=== PATIENT | female | born 1955 | race Caucasian/White ===

== ENCOUNTER 2023-01-27 11:24 | Emergency (ER) | payer MEDICARE, OTHER ==
[~2023-01-27] VITALS: Ht 170.2 cm; Wt 86.3 kg
[2023-01-27 12:47] LABS: INFLUENZA B NAA NEGATIVE (NEGATIVE); RESPIRATORY SYNCYTIAL VIR NAA NEGATIVE (NEGATIVE)
[2023-01-27 13:25] LABS: HEMATOCRIT 38.5 % (35.0-50.0); HEMOGLOBIN 12.8 g/dL (12.0-18.0); MCH 31.7 (27-36); MCHC 33.2 g/dl (30-36); MCV 95.6 fl (81-99); PLATELET COUNT 132 K/uL (140-440); RBC 4.03 M/ul (4.3-5.7); RDW 13.9 (10.5-15.0)
[2023-01-27] MEDS ORDERED: DEPAKOTE250 MG PO (13:35)
[2023-01-27] MEDS ORDERED: HALOPERIDOL5 MG PO (13:35)
[2023-01-27 13:37] LABS: ANION GAP 11.4 (7-21); BUN/CREATININE RATIO 13.53 (6.0-28.6); CALCIUM 8.9 mg/dL (8.5-10.1); CREATININE, SERUM 1.33 mg/dL (0.55-1.02); POTASSIUM 4.4 mmol/L (3.5-5.1)
[2023-01-27 13:41] LABS: BANDS, MANUAL DIFF 3; LYMPHOCYTES, MANUAL DIFF 13; MONOCYTES, MANUAL DIFF 8; NEUTROPHILS, MANUAL DIFF 76
[2023-01-27] MEDS ORDERED: PAXLOVID 150-11 EACH PO (14:03)
[2023-01-27 14:21] VITALS: BP 128/71
== END 2023-01-27 14:22 | disposition home or self-care (01) ==
LOC: ED 11:24
PROVIDERS: Emergency Medicine
DX: U07.1 COVID-19 (principal); Z88.2 Allergy status to sulfonamides
CPT/HCPCS: 36415; 71045; 80048; 85025; 87502; 87651; C9803; U0002

== ENCOUNTER 2024-06-14 13:25 | Emergency (ER) | payer MEDICARE, OTHER ==
[~2024-06-14] VITALS: Ht 170.2 cm; Wt 88.0 kg
[~2024-06-14 13:25] MED LIST: DEPAKOTE250 MG PO; HALOPERIDOL5 MG PO; PAXLOVID 150-11 EACH PO
[2024-06-14 14:51] LABS: BILIRUBIN, URINE NEGATIVE (negative); BLOOD/HGB, URINE NEGATIVE (Negative); KETONE, URINE TRACE (Negative); LEUK ESTERASE, URINE SMALL (negative); NITRITE, URINE NEGATIVE (negative)
[2024-06-14 14:57] LABS: BACTERIA, URINE 1+ /hpf (negative); CASTS, URINE NONE SEEN \\lpf; COLLECTION TYPE, URINE CLEAN CATCH; CRYSTALS, URINE NONE SEEN (0-1+); EPITHELIAL CELLS, URINE TRANSITIONAL 1+ /lpf (0-1+); RED BLOOD CELLS, URINE 0-1 /hpf (0-5); REFLEX CULTURE, URINE Yes (No); WHITE BLOOD CELLS, URINE >50 /HPF (0-5)
[2024-06-14] MEDS ORDERED: MACROBID 100 M100 MG PO (16:30)
[2024-06-14] MEDS ORDERED: PYRIDIUM200 MG PO (16:30)
[2024-06-14] MEDS ORDERED: NITROFURANTOIN MONOHYD MACROCR 100 MG CAP PO ONE (16:30)
[2024-06-14] MEDS ORDERED: PHENAZOPYRIDINE HCL 100 MG TAB PO ONE (16:30)
[2024-06-14 16:40] VITALS: BP 105/53
== END 2024-06-14 16:40 | disposition home or self-care (01) ==
LOC: ED 13:25
PROVIDERS: Emergency Medicine
DX: N39.0 Urinary tract infection, site not specified (principal); Z88.2 Allergy status to sulfonamides; Z79.899 Other long term (current) drug therapy
CPT/HCPCS: 81001; 87077; 87088; 87186; 99284

== ENCOUNTER 2024-10-28 05:40 | Day surgery (SDC) | payer MEDICARE, OTHER ==
[~2024-10-28] VITALS: Ht 170.2 cm; Wt 86.0 kg
[~2024-10-28 05:40] MED LIST changes: +FISH OIL 1,001000 MG PO; +HAIR, SKIN A66.7 MCG PO; +LACTATED RINGER'S 1,000 ML IV SCH; +MACROBID 100 M100 MG PO; +MULTI VITAMIN1 EACH PO; +PYRIDIUM200 MG PO; +VITAMIN C500 M5 PO; +VITAMIN D310 MC5 PO; +VITAMIN E100 UNI2 PO
[2024-10-28 05:57] VITALS: BP 125/68
[2024-10-28] MEDS ORDERED: VITAMIN A2400 MCG PO (06:01)
[2024-10-28] MEDS ORDERED: LIDOCAINE HCL 1% 5 ML SDV INJ ONE (07:00)
[2024-10-28] MEDS ORDERED: IBLOOD GLUCOSE TEST STRIP 1 EA TEST VI PRN ×2 (07:00→08:15)
--- NOTE | 2024-10-28 07:23 | NUR ---
VISITED DURING SPIRITUAL CARE ROUNDS. PT IN OVERALL GOOD SPIRITS, NO IMMEDIATE NEEDS. LENS EDGE GRINDER MACHINE PROVIDED SUPPORTIVE PRESENCE, HOSPITALITY, PRAYER, FACILITATED INTERACTION WITH THERAPY DOG. PT EXPRESSED GRATITUDE, HOPE, NICOLASA SOURCE OF STRENGTH.
[2024-10-28] MEDS ORDERED: ACETAMINOPHEN 1,000 MG/100 ML VIAL ONE (07:31)
[2024-10-28] MEDS ORDERED: KETAMINE in NS 50 MG/5 ML SYR ONE (07:37)
[2024-10-28] MEDS ORDERED: NALOXONE HCL 0.4 MG SYR IV PRN (08:15)
[2024-10-28] MEDS ORDERED: fentaNYL citrate 50 MCG/ML SDV IV PRN (08:15)
--- NOTE | 2024-10-28 08:16 | NUR ---
10/28/24 0816 Katrina Gravse 0812: PT ARRIVES TO PACU. SHE IS AWAKE AND ASKING QUESTIONS. SHE IS MAKING REPETITIVE STATEMENTS ABOUT BEING SORE AND ASKING "WHAT DID YOU DO DOWN THERE?"
[2024-10-28 08:43] VITALS: BP 124/65
--- NOTE | 2024-10-29 14:25 | PATH ---
[facility] [address] [facility] [place] [address] Signed SPECIMEN(S): A ENDOMETRIAL BIOPSY SPECIMEN SOURCE: A. ENDOMETRIAL BIOPSY CLINICAL HISTORY: Postmenopausal bleeding FINAL PATHOLOGIC DIAGNOSIS: Endometrial biopsy: - Scant superficial inactive glandular epithelium and metaplastic squamous epithelial cells with abundant mucoinflammatory debris. - See Comment. COMMENT: The sampled material consists predominantly of mucohemorrhagic material and slight inflammatory debris. The sample has insufficient epithelium for definitive characterization of the endometrium. Appropriate follow-up is requested as clinically indicated. JVR:smn MICROSCOPIC EXAMINATION: Histologic sections of all submitted blocks are examined by light microscopy. These findings, together with the gross examination, support the pathologic diagnosis. GROSS DESCRIPTION: The specimen, labeled and designated "RezaSorin rodriguez, endometrial biopsy" per requisition, is received in formalin and consists of a 2.4 x 1.8 x 0.6 cm area of paz tissue fragments admixed with clear mucus. The specimen is entirely submitted in cassette A1. AA (under the direct supervision of a pathologist) The Gross Description was prepared using a voice recognition system. The report was reviewed for accuracy; however, sound-alike word errors, addition and/or deletions may occur. If there is any question about this report, please contact Client Services. PERFORMING LABORATORY: Technical component was performed by [facility], [address] [place] [id number] (CLIA# [id number]). Professional interpretation was performed by [facility] [place] [facility], [address] PATIENT NAME: DANIEL MELENDREZ PATHOLOGY DATE OF : 53 REPORT #: [id number] PHYSICIAN: [facility] PCP: MARCELLE SY MD REPORT IS CONFIDENTIAL AND NOT TO BE RELEASED WITHOUT AUTHORIZATION [facility] [address] [place], [place] [address] Signed [address] [address] (CLIA#: [id number]). Diagnostician: Ghulam Torres MD Pathologist Electronically Signed 10/29/2024 Copies: ~ PATIENT NAME: DANIEL MELENDREZ PATHOLOGY DATE OF : 53 REPORT #: [id number] PHYSICIAN: [facility] PCP: MARCELLE SY MD REPORT IS CONFIDENTIAL AND NOT TO BE RELEASED WITHOUT AUTHORIZATION
--- NOTE | 2024-10-30 07:40 | OR ---
[facility] [address] [facility] [place] [address] Signed DATE OF OPERATION: 10/28/2024 SURGEON: Lucas Licona MD PREOPERATIVE DIAGNOSIS: Postmenopausal bleeding. POSTOPERATIVE DIAGNOSIS: Postmenopausal bleeding. PROCEDURE: Endometrial biopsy. ANESTHESIA: MAC plus local. DIETITIAN CHIEF: None. IV FLUIDS: 550 mL of crystalloid. ESTIMATED BLOOD LOSS: 5 mL. URINE OUTPUT: 150 mL. SPECIMENS: Endometrial sampling. DRAINS: None. COUNTS: Correct. COMPLICATIONS: None. Electronically Signed By: LUCAS LICONA MD 10/30/24 0740 PATIENT NAME: DANIEL MELENDREZ OPERATIVE REPORT DATE OF : 53 REPORT #: [id number] PHYSICIAN: LUCAS LICONA MD PCP: MARCELLE SY MD REPORT IS CONFIDENTIAL AND NOT TO BE RELEASED WITHOUT AUTHORIZATION [facility] [address] [place] [address] [place], [place] [address] Signed TECHNIQUE IN DETAIL: With informed consent, the patient was taken to the operating room where she was given IV sedation. She was prepped and draped and time-out was performed per protocol. A Celaya speculum was placed and the cervix was visualized. The patient was given a paracervical block in the form of 10 mL of 0.25% Marcaine with epinephrine. Single-tooth tenaculum was placed on the anterior lip of the cervix. The cervical canal was then carefully dilated using lacrimal dilators. Once adequate dilation had been effectuated, an endometrial Pipelle was passed through the cervical canal into the uterine fundus. The uterus sounded to 9 cm. Biopsy was performed. We used two Pipelles to do two biopsies to ensure maximal tissue recovery. Once biopsy specimens were obtained, procedure was deemed to be complete and tenaculum was removed. Tenaculum sites were hemostatic. The speculum was removed. The patient underwent I and O catheterization of her bladder for the above-mentioned amount. DISPOSITION: The patient was taken to the recovery room in stable condition. Lucas Licona MD BB/TRAYL /[id number] Copies: ~ Electronically Signed By: LUCAS LICONA MD 10/30/24 0740 PATIENT NAME: DANIEL MELENDREZ OPERATIVE REPORT DATE OF : 53 REPORT #: [id number] PHYSICIAN: LUCAS LICONA MD PCP: MARCELLE SY MD REPORT IS CONFIDENTIAL AND NOT TO BE RELEASED WITHOUT AUTHORIZATION
== END 2024-10-28 08:49 | disposition home or self-care (01) ==
LOC: DS 05:40
PROVIDERS: ATTEND Obstetrics & Gynecology
PROC: 0UDB7ZX Extraction of Endometrium, Via Natural or Artificial Opening, Diagnostic (ICD-10-PCS; principal; 2024-10-28 07:30)
DX: N95.0 Postmenopausal bleeding (principal); Z88.2 Allergy status to sulfonamides; Z91.09 Other allergy status, other than to drugs and biological substances
CPT/HCPCS: 00940; J0131; J2405; J2704; J3490; J7121

== ENCOUNTER 2025-02-09 00:16 | Emergency (ER) | payer MEDICARE, OTHER ==
[~2025-02-09] VITALS: Ht 170.2 cm; Wt 86.0 kg
[~2025-02-09 00:16] MED LIST changes: -LACTATED RINGER'S 1,000 ML IV SCH; +VITAMIN A2400 MCG PO
[2025-02-09] MEDS ORDERED: IBLOOD GLUCOSE TEST STRIP 1 EA TEST XX ONE (00:30)
[2025-02-09] MEDS ORDERED: LORazepam 2 MG/ML VIAL IV ONE ×2 (00:30→00:45)
[2025-02-09 00:45] LABS: BASOPHILS 0.3 % (0.1-1.2); EOSINOPHILS 0.9 % (0.7-5.8); LYMPHOCYTES 19.5 % (19.3-51.7); MCH 31.4 PG (25.6-32.2); MCHC 32.7 g/dL (32.2-35.5); MCV 96.1 fL (79.4-94.8); MONOCYTES 7.7 % (4.7-12.5); NEUTROPHILS 71.3 % (34.0-71.1); RBC 4.08 M/uL (3.93-5.22)
[2025-02-09 01:03] LABS: BLOOD/HGB, URINE NEGATIVE (Negative); KETONE, URINE SMALL (Negative); LEUK ESTERASE, URINE NEGATIVE (negative); NITRITE, URINE NEGATIVE (negative)
[2025-02-09] MEDS ORDERED: DEPAKOTE250 MG PO (01:05)
[2025-02-09] MEDS ORDERED: OXYBUTYNIN CHLOR5 M1 PO (01:06)
[2025-02-09] MEDS ORDERED: HALOPERIDOL5 MG PO (01:07)
[2025-02-09 01:14] LABS: ALT (SGPT) 7.0 U/L (14-59); AST (SGOT) 17.0 U/L (15-37); GLOMERULAR FILTRATION RATE,EST 48.0 mL/min (>60); INR 1.11 (0.80-1.30); PROTEIN, TOTAL 6.2 g/dL (6.4-8.2); PROTIME 13.6 Sec (11.2-14.2); UREA NITROGEN 25.0 mg/dL (7-18)
[2025-02-09 01:27] LABS: AMPHETAMINES, URINE NEGATIVE (NEGATIVE); BARBITURATES, URINE NEGATIVE (NEGATIVE); BENZODIAZEPINE, URINE NEGATIVE (NEGATIVE); CANNABINOID, URINE NEGATIVE (NEGATIVE); COCAINE, URINE NEGATIVE (NEGATIVE); ECSTASY, URINE NEGATIVE (NEGATIVE); FENTANYL, URINE NEGATIVE (NEGATIVE); OPIATES, URINE NEGATIVE (NEGATIVE); OXYCODONE, URINE NEGATIVE (NEGATIVE); PHENCYCLIDINE, URINE NEGATIVE (NEGATIVE)
[2025-02-09 01:28] LABS: VALPROIC ACID 57 ug/mL (50-100)
[2025-02-09 01:40] LABS: METHADONE, URINE NEGATIVE (NEGATIVE)
[2025-02-09] MEDS ORDERED: LACTATED RINGER'S 1,000 ML IV ONE (01:45)
[2025-02-09] MEDS ORDERED: LIDOCAINE 2% VISCOUS 6 ML SYR TOP ONE ×2 (02:15→03:45)
[2025-02-09 10:00] VITALS: BP 101/64
--- NOTE | 2025-02-10 07:40 | EKG ---
[facility] [address] [facility] [place], [place] [address] Signed Normal sinus rhythm Nonspecific ST abnormality Abnormal ECG No previous ECGs available Confirmed by Shireen Agosto DO ([id number]) on 02/10/2025 7:40:12 AM Electronically Signed By: SHIREEN AGOSTO DO 02/10/25 0740 PATIENT NAME: DANIEL MELENDREZ Electrocardiogram DATE OF : 53 PHYSICIAN: SHIREEN AGOSTO DO REPORT #: [id number] REPORT IS CONFIDENTIAL AND NOT TO BE RELEASED WITHOUT AUTHORIZATION
[2025-02-10] MEDS ORDERED: DIVALPROEX SOD250 M1 PO (07:45)
[2025-02-10] MEDS ORDERED: COD LIVER OIL1 EAC2 PO (17:00)
[2025-02-10] MEDS ORDERED: FISH OIL 1,0001 EAC8 PO (17:00)
[2025-02-10] MEDS ORDERED: MULTI VITAMIN1 EACH PO (17:00)
[2025-02-10] MEDS ORDERED: ASCORBIC ACID500 M2 PO (17:01)
[2025-02-10] MEDS ORDERED: HAIR, SKIN A66.7 MCG PO (17:02)
== END 2025-02-09 10:16 | disposition home or self-care (01) ==
LOC: ED 00:16
PROVIDERS: Internal Medicine
DX: G40.909 Epilepsy, unspecified, not intractable, without status epilepticus (principal); Z88.2 Allergy status to sulfonamides; Z88.8 Allergy status to other drugs, medicaments and biological substances; Z79.899 Other long term (current) drug therapy
CPT/HCPCS: 36415; 70450; 70496; 70498; 71045; 80053; 80164; 80307; 81003; 82550; 84484; 85025; 85610; 85730; 93005; 93010; 96361; 96365; 96375; 99285-25; J1953; J2060; J7121

== ENCOUNTER 2025-02-09 14:05 | Inpatient (IN) | payer MEDICARE, OTHER ==
[~2025-02-09] VITALS: Ht 170.2 cm; Wt 84.8 kg
[~2025-02-09 14:05] MED LIST changes: +OXYBUTYNIN CHLOR5 M1 PO
--- OUTSIDE RECORDS SUMMARY | 2025-02-09 14:15 | XMS ---
PreManage Notification: DANIEL MELENDREZ Security T[employer] Setter Events No recent Security Events currently on file CRITERIA MET - [facility] [place] [facility] - 2 Visits in 30 Days CARE PROVIDERS There are no care providers on record at this time. Kelvin has no Care Guidelines for this patient. Rob VISIT COUNT (12 MO.) [address] [facility] TOTAL 3 NOTE: Visits indicate total known visits. ED/C VISIT TRACKING (12 MO.) 02/09/2025 14:09 [facility] [place] TYPE: Emergency COMPLAINT: - ALTERED 02/09/2025 00:17 [facility] [place] TYPE: Emergency COMPLAINT: - STROKE SYPMTOMS 06/14/2024 13:25 [facility] [place] TYPE: Emergency COMPLAINT: - URINE PROBLEM DIAGNOSES: - Allergy status to sulfonamides - Frequency of micturition - Other intermediate frame tender (current) drug therapy - Urinary tract infection, site not specified INPATIENT VISIT TRACKING (12 MO.) No inpatient visits to display in this time frame [email or web address]
[2025-02-09] MEDS ORDERED: IBLOOD GLUCOSE TEST STRIP 1 EA TEST VI ONE (14:30)
[2025-02-09 14:33] LABS: BASOPHILS 0.1 % (0.1-1.2); EOSINOPHILS 0.1 % (0.7-5.8); LYMPHOCYTES 5.2 % (19.3-51.7); MCH 31.1 PG (25.6-32.2); MCHC 32.6 g/dL (32.2-35.5); MCV 95.4 fL (79.4-94.8); MONOCYTES 5.4 % (4.7-12.5); NEUTROPHILS 88.9 % (34.0-71.1); RBC 4.31 M/uL (3.93-5.22)
[2025-02-09 14:50] LABS: ALCOHOL, MEDICAL <3 ng/dL (<3); ALT (SGPT) 23 U/L (14-59); AST (SGOT) 21 U/L (15-37); GLOMERULAR FILTRATION RATE,EST 57 mL/min (>60); PROTEIN, TOTAL 6.8 g/dL (6.4-8.2); UREA NITROGEN 21 mg/dL (7-18)
[2025-02-09] MEDS ORDERED: LACTATED RINGER'S 1,000 ML IV SCH (19:00)
[2025-02-09] MEDS ORDERED: ACETAMINOPHEN 325 MG TAB PO PRN (19:00)
[2025-02-09 20:10] VITALS: BP 126/70
--- NOTE | 2025-02-09 20:15 | NUR ---
PT ARRIVED TO ROOM 121 VIA STRETCHER FROM ER. REQUIRED MAX ASSIST TO HOSPITAL BED. RECEIVED REPORT FROM TAYLOR VETERINARY DENTIST. PT IS DROWSY, FREQUENTLY FALLS BACK ASLEEP DURING ASSESSMENT. ORIENTED X 3, ONLY SLIGHTLY OFF ON DATE. DENIES PAIN. LSC DIM TO BASES. HRR. BTA. THINKS LBM WAS TODAY. DUE TO VOID. RAC IV WNL, INFUSING LR @ 100MLS/HR. SKIN CHECK DONE WITH VETERINARY DENTIST, SKIN IS INTACT. SEIZURE PADS AND PRECAUTIONS IN PLACE. PT TOOK HS MEDS W/O DIFFICULTY. BED ALARM IN PLACE FOR SAFETY. FALLS MATS ON FLOOR FOR SAFTEY. CALL LIGHT WITHIN REACH.
[2025-02-09] MEDS ORDERED: DIVALPROEX SODIUM 250 MG TABLET.DR PO SCH (21:00)
[2025-02-09] MEDS ORDERED: MELATONIN 3 MG TAB PO PRN (21:00)
--- NOTE | 2025-02-09 22:34 | NUR ---
SLEEPING SOUNDLY, APPEARS COMFORTABLE. SZ PADS IN PLACE, FALL MATS ON FLOOR. BED ALARM ON. CALL LIGHT WITHIN REACH.
[2025-02-10] VITALS (9 sets, daily range): BP systolic 99–141; BP diastolic 50–64
--- NOTE | 2025-02-10 00:41 | NUR ---
PT SLEEPING SOUNDLY, APPEARS COMFORTABLE. BREATHING EVEN AND UNLABORED. SEIZURE PADS IN PLACE. BED ALARM IN PLACE. CALL LIGHT WITHIN REACH.
--- NOTE | 2025-02-10 01:45 | NUR ---
PT AWAKE. REQUESTS HELP TO TURN TO LEFT SIDE. REPORTS BACK AND BILAT RIB PAIN 09/22. PT MEDICATED W/ PRN TYLENOL. PT INC URINE X 1-BEDDING CHANGED AND PUREWICK PLACED. BED ALARM IN PLACE. CALL LIGHT WITHIN REACH.
--- NOTE | 2025-02-10 04:38 | NUR ---
PT SLEEPING SOUNDLY ON LEFT SIDE. APPEARS COMFORTABLE.
[2025-02-10 05:47] LABS: BASOPHILS 0.3 % (0.1-1.2); EOSINOPHILS 0.3 % (0.7-5.8); LYMPHOCYTES 13.8 % (19.3-51.7); MCH 31.2 PG (25.6-32.2); MCHC 32.6 g/dL (32.2-35.5); MCV 95.7 fL (79.4-94.8); MONOCYTES 8.1 % (4.7-12.5); NEUTROPHILS 77.2 % (34.0-71.1); RBC 3.97 M/uL (3.93-5.22)
--- NOTE | 2025-02-10 06:00 | NUR ---
PT ASLEEP, AWAKENS W/ REPEATED VERBAL STIMULATION. ORIENTED X 3, ONLY SLIGHTLY OFF ON DATE. DENIES PAIN AT THIS TIME. BED ALARM IN PLACE.
[2025-02-10 06:02] LABS: ALT (SGPT) 16.0 U/L (14-59); AST (SGOT) 20.0 U/L (15-37); GLOMERULAR FILTRATION RATE,EST 77.0 mL/min (>60); PROTEIN, TOTAL 5.9 g/dL (6.4-8.2); UREA NITROGEN 14.0 mg/dL (7-18)
--- NOTE | 2025-02-10 07:12 | NUR ---
REPORT RECIEVED FROM MARYJO PACE. PATIENT RESTING IN BED ON HER LEFT SIDE WITH HER EYES CLOSED. EVEN AND UNLABORED RESPIRATIONS NOTED. SEIZURE PADS AND FALL MATS IN PLACE. BED ALARM ACTIVATED. CALL LIGHT AND PERSONAL BELONGINGS ARE WITHIN REACH. WHITE BOARD UPDATED.
--- NOTE | 2025-02-10 07:41 | EKG ---
[facility] [address] [facility] [place], [place] [address] Signed Normal sinus rhythm Normal ECG When compared with ECG of 09-FEB-2025 00:40, (Unconfirmed) No significant change was found Confirmed by Shireen Agosto DO ([id number]) on 02/10/2025 7:41:28 AM Electronically Signed By: SHIREEN AGOSTO DO 02/10/25 0741 PATIENT NAME: DANIEL MELENDREZ Electrocardiogram DATE OF : 53 PHYSICIAN: SHIREEN AGOSTO DO REPORT #: [id number] REPORT IS CONFIDENTIAL AND NOT TO BE RELEASED WITHOUT AUTHORIZATION
[2025-02-10] MEDS ORDERED: DIVALPROEX SOD250 M1 PO (07:45)
--- NOTE | 2025-02-10 08:15 | NUR ---
PATIENT RESTING IN BED AND DENIES WANTING TO SIT UP IN CHAIR FOR BREAKFAST. PATIENT ALSO DENIES WANTING TO EAT BUT STATES "I WANT A DRINK OF WATER" PATIENT REPOSITIONED TO AN UPRIGHT POSITION FOR WATER AND PATIENT STATES "I'M WET". RIKA ALVAREZ IN ROOM ASSISTING THIS RN WITH PATIENT CARE. FILOMENA CARE PROVIDED, NEW ELAINE AND NADEEM APPLIED. PATIENT WAS ASKED ONCE AGAIN IF SHE WANTED SOME BREAKFAST AND PATIENT STATES "YEAH I GUESS I'LL HAVE SOME" PATIENT STILL DECLINES WANTING TO GET UP TO HER CHAIR. BREAKFAST TRAY SET UP INFRONT OF PATIENT. PATIENT WITHOUT FURTHER NEEDS AT THIS TIME. CALL LIGHT AND PERSONAL BELONGINGS ARE WITHIN REACH. SEIZURE PADS AND FALL MATS ARE IN PLACE. BED ALARM ACTIVATED.
[2025-02-10] MEDS ORDERED: ENOXAPARIN SODIUM 40 MG/0.4 ML SYR SUB-Q SCH (09:00)
--- NOTE | 2025-02-10 09:00 | NUR ---
IV FLUIDS RESTARTED AFTER BLOOD DRAW. PATIENT FINISHING BREAKFAST AND IS WITHOUT FURTHER NEEDS AT THIS TIME. SEIZURE PRECAUTIONS IN PLACE. CALL LIGHT AND PERSONAL BELONGINGS ARE WITHIN REACH.
[2025-02-10 09:24] LABS: VALPROIC ACID 35 ug/mL (50-100)
--- NOTE | 2025-02-10 10:05 | NUR ---
PATIENT MEDICATED PER EMAR. PATIENT SITTING UP IN BED AND REFUSES TO GET UP TO CHAIR. PATIENT WITHOUT FURTHER NEEDS AT THIS TIME. CALL LIGHT AND PERSONAL BELONGINGS ARE WITHIN REACH. SEIZURE PRECAUTIONS ARE IN PLACE. BED ALARM ACTIVATED.
--- NOTE | 2025-02-10 10:12 | NUR ---
DEBBIE WITH CASE MANAGEMENT AT BEDSIDE
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
--- NOTE | 2025-02-10 10:31 | NUR ---
DR AGOSTO AT BEDSIDE WITH VERBAL ORDER FOR CHEST CT
--- NOTE | 2025-02-10 10:41 | NUR ---
MD/PHARMACY NOTIFIED OF THE OXYBUTYNIN ER PER HOME MED REC, WE DO NOT CARRY THE ER SO WILL DOSE TO GIVE BID TO COVER. MD INFORMED AND WILL REVIEW ORDER/UPDATE ACCORDINLY.
--- NOTE | 2025-02-10 11:52 | NUR ---
PATIENT IV FLUSHED WITH 10ML OF NS, DRESSING IS INTACT. PATIENT LUNCH TRAY SET UP INFRONT OF PATIENT. PATIENT IS WITHOUT FURTHER NEEDS AT THIS TIME. IV FLUIDS INFUSING PER ORDER. CALL LIGHT AND PERSONAL BELONINGS ARE WITHIN REACH.
[2025-02-10] MEDS ORDERED: PHARMACY RENAL DOSE ADJUSTMENT 1 DOSE MISC PO SCH (12:00)
--- NOTE | 2025-02-10 12:30 | NUR ---
PATIENT SITTING UP IN HER CHAIR EATING LUNCH. PATIENT DENIES ANY NEEDS AT THIS TIME. CALL LIGHT AND PERSONAL BELONGINGS ARE WITHIN REACH.
[2025-02-10] MEDS ORDERED: HYDROCODONE/ACETA 5/325 TAB PO PRN (12:45)
[2025-02-10] MEDS ORDERED: LIDOCAINE HCL 4% 1 EACH PATCH TD SCH (12:46)
--- NOTE | 2025-02-10 13:30 | NUR ---
PATIENT'S AT BEDSIDE.
--- NOTE | 2025-02-10 13:52 | NUR ---
UR CLINICAL REVIEW: 2 MN FOR VERSALUS-PER WORD PROCESSOR OPERATOR MEETS INPT FOR WEAKNESS/PNEUMOTHORAX WITH NEED FOR PAIN CONTROL, MONITORING AND PT/OT MEDICARE 02/09/25 @ 5065 ORDER MATCHES REG NO AUTH REQUIRED PER MEDICARE GUIDELINES DISCHARGE TO HOME WHEN STABLE
--- NOTE | 2025-02-10 14:00 | NUR ---
PATIENT MEDICATED PER EMAR. PATIENT SITTING UP IN HER CHAIR AND DENIES ANY NEEDS AT THIS TIME. CALL LIGHT AND PERSONAL BELONGINGS ARE WITHIN REACH.
--- NOTE | 2025-02-10 15:30 | NUR ---
PATIENT RESTING IN HER CHAIR. CALL LIGHT AND PERSONAL BELONGINGS ARE WITHIN REACH.
--- NOTE | 2025-02-10 16:10 | NUR ---
PATIENT UP IN HER CHAIR AND IS WITHOUT ANY NEEDS AT THIS TIME. CALL LIGHT AND PERSONAL BELONGINGS ARE WITHIN REACH.
[2025-02-10] MEDS ORDERED: MULTI VITAMIN1 EACH PO (17:00)
[2025-02-10] MEDS ORDERED: FISH OIL 1,0001 EAC8 PO (17:00)
[2025-02-10] MEDS ORDERED: COD LIVER OIL1 EAC2 PO (17:00)
[2025-02-10] MEDS ORDERED: ASCORBIC ACID500 M2 PO (17:01)
[2025-02-10] MEDS ORDERED: HAIR, SKIN A66.7 MCG PO (17:02)
--- NOTE | 2025-02-10 17:26 | NUR ---
medications reconciled using pharmacy records and patient interview. Patient's only med is Depakote and she takes several vitamins/supplements
--- NOTE | 2025-02-10 17:55 | NUR ---
PATIENT IV FLUIDS COMPLETED. MARYJO RANDHAWA IN ROOM PLACING NEW BAG.
--- NOTE | 2025-02-10 19:31 | NUR ---
RECEIVED REPORT FROM MARYJO GUEVARA. PT UP IN RECLINER, ASLEEP. CALL LIGHT WITHIN REACH.
--- NOTE | 2025-02-10 20:12 | NUR ---
PT SITTING UP IN RECLINER D/T COMFORT. VITALS DONE AND PAIN REPORTED. CALL LIGHT IN REACH.
--- NOTE | 2025-02-10 20:45 | NUR ---
DR NAVAS AT RN STATION, DISCUSSED FINDING FROM EARLIER CHEST CT RESULTS FROM THIS MORNING (SMALL RIGHT HYDROPNEUMOTHORAX). VERBAL ORDER READ BACK TO REPEAT CHEST CT W/O CONTRAST FOR NOW. VERIFIED CORRECT ORDER WITH DR NAVAS AT RN STATION. ORDER PLACED AND PRIMARY RN UPDATED.
--- NOTE | 2025-02-10 20:58 | NUR ---
PT IN TO W/C FOR TRANSPORT TO CT.
[2025-02-10] MEDS ORDERED: LIDOCAINE PATCH REMOVAL 1 EA TD SCH (21:00)
--- NOTE | 2025-02-10 21:15 | NUR ---
PT BACK IN BED. REPORTS BILAT RIB PAIN, MEDICATED W/ PRN NORCO. ORIENTED X 4 BUT FORGETFUL. LS DIM T/O, ENC DB & C. HRR. BTA. NEW PUREWICK PLACED FOR HS FOR DRIBBLING. RAC IV WNL, INFUSING LR. GENERALIZED RED RASH TO TRUNK, PT DENIES PAIN OR ITCHING. LOTION APPLIED FOR COMFORT. BED ALARM IN PLACE FOR SAFETY. FALL MATS IN PLACE.
--- NOTE | 2025-02-10 21:41 | NUR ---
FILOMENA CARE DONE, PT NADEEM CHANGED. CALL LIGHT IN REACH, NO NEEDS AT THIS TIME.
--- NOTE | 2025-02-10 23:20 | NUR ---
PT ASLEEP, LIGHTLY SNORING. APPEARS COMFORTABLE.
[2025-02-11] VITALS (9 sets, daily range): BP systolic 108–138; BP diastolic 47–70
--- NOTE | 2025-02-11 01:46 | NUR ---
SLEEPING SOUNDLY, SNORING LIGHTLY. CALL LIGHT WITHIN REACH. SEIZURE PADS IN PLACE.
--- NOTE | 2025-02-11 04:30 | NUR ---
PT CALLED D/T INCT. VOID. FILOMENA CARE DONE AND PUREWICK CHANGED. NURSE NOTIFIED ABOUT PAIN. CALL LIGHT IN REACH.
--- NOTE | 2025-02-11 04:37 | NUR ---
PT IS AWAKE, ALERT. ORIENTED X 4. REPORTS BILAT RIB PAIN 12/23. MEDICATED W/ PRN NORCO PER EMAR. SEIZURE PADS IN PLACE. FALL MATS & BED ALARM ON. CALL LIGHT WITHIN REACH.
[2025-02-11 05:37] LABS: BASOPHILS 0.3 % (0.1-1.2); EOSINOPHILS 0.7 % (0.7-5.8); LYMPHOCYTES 18.4 % (19.3-51.7); MCH 31.4 PG (25.6-32.2); MCHC 32.6 g/dL (32.2-35.5); MCV 96.3 fL (79.4-94.8); MONOCYTES 6.1 % (4.7-12.5); NEUTROPHILS 74.1 % (34.0-71.1); RBC 3.79 M/uL (3.93-5.22)
[2025-02-11 05:59] LABS: ALT (SGPT) 15.0 U/L (14-59); AST (SGOT) 17.0 U/L (15-37); GLOMERULAR FILTRATION RATE,EST 64.0 mL/min (>60); PROTEIN, TOTAL 5.4 g/dL (6.4-8.2); UREA NITROGEN 14.0 mg/dL (7-18)
--- NOTE | 2025-02-11 07:15 | NUR ---
REPORT RECIEVED FROM MARYJO PACE. PATIENT RESTING IN BED WITH HER EYES CLOSED. EVEN AND UNLABORED RESPIRATIONS NOTED. IV FLUIDS INFUSING PER ORDER. BED ALARM ACTIVATED. CALL LIGHT AND PERSONAL BELONGINGS ARE WITHIN REACH. WHITE BOARD UPDATED.
--- NOTE | 2025-02-11 07:30 | NUR ---
PATIENT IN BED AT THIS TIME. REPORTING MANAGER CHARTED HOURLY ROUNDS, PATIENT DECLINED CHAIR AT THIS TIME BUT AGREED TO GET INTO CHAIR AFTER BREAKFAST. CALL LIGHT WITHIN REACH, NO FURTHER NEEDS.
--- NOTE | 2025-02-11 08:25 | NUR ---
PATIENT RESTING IN BED WITH HER EYES CLOSED. EVEN AND UNLABORED RESPIRATIONS NOTED. CALL LIGHT AND PERSONAL BELONGINGS ARE WITHIN REACH.
--- NOTE | 2025-02-11 09:40 | NUR ---
PATIENT MEDICATED PER EMAR. PATIENT SITTING UP IN HER CHAIR EATING DINNER. PATIENT REQUESTING TO HAVE LIGHTS OFF, BUT OKAY WITH OPENING THE BLINDS. PATIENT ASSESSMENT COMPLETED. PATIENT IS ALERT AND ORIENTED. RASH TO GENERALIZED TRUNK AREA, HAS IMPROVED FROM YESTERDAYS ASSESSMENT. PATIENT DENIES ANY PAIN,BURNING, OR ITCHING TO RASH AREA. PATIENT WITHOUT FURTHER NEEDS AT THIS TIME. CALL LIGHT AND PERSONAL BELONGINGS ARE WITHIN REACH.
[2025-02-11] MEDS ORDERED: MAGNESIUM SULFATE 2 GM/50 ML BAG IV ONE (10:00)
--- NOTE | 2025-02-11 10:17 | NUR ---
PT UP IN BATHROOM WITH LICENSED PSYCHOLOGIST WHEN THIS RN ENTERED THE ROOM. PT AMBULATING WITH 1PA/FWW BACK TO CHAIR, UPON SITTING DOWN PATIENT MOANS AND THIS RN ASKED IF PAIN, PT STATES IS THAT EVEN A QUESTION. PT REPORTS PAIN 9/10 TO RIGHT RIBS, PRN MEDS GIVEN - SEE MAR. IV MAGNESIUM INFUSING ORDERED - SEE MAR. ALL PT CARE NEEDS MET, CALL LIGHT WITHIN REACH.
--- NOTE | 2025-02-11 10:20 | NUR ---
Spoke with Rosina. Discussed her rib fractures. Asked if she is interested in placement and going to rehab. Pt very much against this idea. Pt insists on going home and states her spouse will help her. I then suggested HH for SN/PT/OT. Pt declines SN, but does agree to PT/OT after discussion about PT/OT. Pt originally stating she will go home and go to bed. I cautioned her about staying mobile to prevent pneumonia with her fractured ribs. Pt agrees to for PT/OT. Pt. would like to go home but has not seen Dr. Khan at this time.
--- NOTE | 2025-02-11 10:33 | NUR ---
ROD HANGER ASSISTED PATIENT TO THE RESTROOM, CHANGED PUREWICK, AND BREIF, GOT A NEW GOWN, DID AM CARE, WASHED FACE, BRUSHED HAIR AND TEEETH. ASSISTED PATIENT BACK TO HER CHAIR, GOT COFFEE, CALL LIGHT WITH IN REACH AND NOTHING ELSE NEEDED AT THIS TIME.
--- NOTE | 2025-02-11 11:45 | NUR ---
PATIENT SALINE LOCKED FOR AMBULATING WITH PT
--- NOTE | 2025-02-11 12:35 | NUR ---
PATIENT SITTING UP IN HER CHAIR EATING LUNCH. PATIENT IS WITHOUT ANY NEEDS AT THIS TIME. CALL LIGHT AND PERSONAL BELONGINGS ARE WITHIN REACH.
--- NOTE | 2025-02-11 13:06 | NUR ---
PATIENT SITTING UP IN HER CHAIR VISITING WITH HER AT BEDSIDE. NO NEEDS AT THIS TIME. CALL LIGHT AND PERSONAL BELONGINGS ARE WITHIN REACH.
--- NOTE | 2025-02-11 14:14 | NUR ---
PATIENT IN BED AT THIS TIME. GIFT SHOP CLERK CHARTED VITALS AND I&O'S. CALL LIGHT WITHIN REACH, NO FURTHER NEEDS.
--- NOTE | 2025-02-11 15:20 | NUR ---
PATIENT UP AND WALKING THE HALLS WITH STAFF
--- NOTE | 2025-02-11 16:21 | NUR ---
CALL TO MRI THIS EVENING, THEY WILL BE DOING MRI TOMORROW DUE TO FULL SCHEDULE TODAY. PRIMARY RN NOTIFIED.
--- NOTE | 2025-02-11 17:15 | NUR ---
PATIENT SITTING UP IN HER CHAIR AND IS WITHOUT ANY NEEDS AT THIS TIME. CALL LIGHT AND PERSONAL BELONGINGS ARE WITHIN REACH.
--- NOTE | 2025-02-11 18:02 | NUR ---
PATIENT IN CHAIR AT THIS TIME. GROUT MACHINE TENDER CHARTED VITALS AND I&O'S. CALL LIGHT WITHIN REACH, NO FURTHER NEEDS.
--- NOTE | 2025-02-11 19:53 | NUR ---
RECEIVED REPORT FROM MARYJO GUEVARA. PT UP IN RECLINER, INQUIRING ABOUT HER EARRINGS. PT GIVEN GREEN BELONGINGS BAG TO DIG THROUGH PER REQUEST. CHAIR ALARM IN PLACE. CALL LIGHT WITHIN REACH.
--- NOTE | 2025-02-11 20:15 | NUR ---
PT BACK TO BED W/ AIRFRAME AND POWER PLANT MECHANIC ASSIST-REQUIRES SBA W/ FWW. PT ORIENTED X 3, UNCLEAR ON SITUATION. REPORTS 11/22 PAIN TO RIGHT RIBS, PT MEDICATED W/ PRN NORCO PER EMAR. LS DIM TO RIGHT BASE, ENC DB & C W/ SPLINTING. PT SHALLOW BREATHING R/T PAIN. CPOX IN PLACE, ON RA. HRR. BTA, LBM 02/09. BOWEL MEDS GIVEN. PT DRIBBLES, NEW PUREWICK PLACED FOR HS BY AIRFRAME AND POWER PLANT MECHANIC. RAC IV WNL INFUSING LR @ 100. RED RASH TO TRUNK, PT DENIES SYMPTOMS. SEIZURE PADS AND PRECAUTIONS IN PLACE. BED ALARM ON FOR SAFETY. CALL LIGHT WITHIN REACH.
--- NOTE | 2025-02-11 20:15 | NUR ---
ASSISTED PT OUT OF RECLINER TO BR AND BACK TO BED. PUREWICK PLACED, VITALS DONE, WARM BLANKET GIVEN. CALL LIGHT AND PERSONAL ITEMS IN REACH, NO NEEDS AT THIS TIME.
[2025-02-11] MEDS ORDERED: SENNOSIDES/DOCUSATE 1 EA TAB PO SCH (21:00)
[2025-02-11] MEDS ORDERED: POLYETHYLENE GLYCOL 3350 1 PACKET PO SCH (21:00)
--- NOTE | 2025-02-11 22:57 | NUR ---
PT AWAKE, REQUESTS LIGHTS OUT AND TV OFF FOR HS.
[2025-02-12] VITALS (8 sets, daily range): BP systolic 118–147; BP diastolic 67–93
--- NOTE | 2025-02-12 00:37 | NUR ---
PT AWAKE, REPORTS DIFFICULTY SLEEPING. PT STATES SHE FEELS WET, DISPOSIBLE BRIEF WET, FILOMENA CARE PROVIDED AND NEW BRIEF PLACED. PUREWICK IN PLACE, 700cc URINE IN CANISTER.
--- NOTE | 2025-02-12 03:54 | NUR ---
PT ASLEEP, APPEARS COMFORTABLE. SEIZURE PADS IN PLACE. BED ALARM IN USE.
[2025-02-12 05:52] LABS: BASOPHILS 0.2 % (0.1-1.2); EOSINOPHILS 1.3 % (0.7-5.8); LYMPHOCYTES 22.7 % (19.3-51.7); MCH 31.0 PG (25.6-32.2); MCHC 32.2 g/dL (32.2-35.5); MCV 96.1 fL (79.4-94.8); MONOCYTES 7.2 % (4.7-12.5); NEUTROPHILS 68.3 % (34.0-71.1); RBC 3.84 M/uL (3.93-5.22)
--- NOTE | 2025-02-12 06:09 | NUR ---
PT UP IN RECLINER. FORGETFUL THIS AM. REORIENTED TO SITUATION. PT PROVIDED W/ COFFEE PER HER REQUEST.
[2025-02-12 06:11] LABS: ALT (SGPT) 17.0 U/L (14-59); AST (SGOT) 15.0 U/L (15-37); GLOMERULAR FILTRATION RATE,EST 62.0 mL/min (>60); PROTEIN, TOTAL 5.9 g/dL (6.4-8.2); UREA NITROGEN 12.0 mg/dL (7-18)
--- NOTE | 2025-02-12 06:18 | NUR ---
CALL LIGHT ANSWERED. PT STATED NEED TO HAVE BM. TEA BAG PACKER 1PA WITH FWW TO BATHROOM. PT VOIDED BUT UNABLE TO HAVE BM. PT STATED SHE WANTED TO SIT IN CHAIR. TEA BAG PACKER 1PA TO CHAIR. VITALS AND I&O OBTAINED. PUREWICK AND BRIEF CHANGED. PT GIVEN WARM BLANKETS UPON REQUEST. PT STATES NO FURTHER NEEDS AT THIS TIME. CALL LIGHT WITHIN REACH AND CHAIR ALARM ON.
--- NOTE | 2025-02-12 07:17 | NUR ---
Pt report received from MARYJO Yepez. Pt is sitting up in her chair, A&O, white board updated. Pt requested I throw away a cup on her bedside table, "but leave the snot, because I'm going to show the doctor" and pointed to a wadded up kleenex on her table. White board updated. Pt denies further needs. Call light in reach.
--- NOTE | 2025-02-12 07:50 | NUR ---
DURING SHIFT CHANGE KIM TOOK PATIENT TO AND FROM BATHROOM. PATIENT IS SITTING UP IN HER CHAIR.
--- NOTE | 2025-02-12 08:10 | NUR ---
ALERT AND ORIENTED, BUT FORGETFUL, IN RECLINER. STATES SHE IS STILL AGREEABLE TO HOME HEALTH PT/OT AFTER REMINDED SHE WILL NEED THEM AT DC. NO OTHER CM NEEDS NOTED AT THIS TIME.
--- NOTE | 2025-02-12 09:47 | NUR ---
PT SITTING IN CHAIR FOR BREAKFAST.
--- NOTE | 2025-02-12 09:49 | NUR ---
PT IN CHAIR FOR BREAKFAST. COMPLETE LINEN CHANGE AND AM CARE FOR PT WITH HELP FROM SPOTTER. PT HAS FRESH WATER BY THE CHAIR AND THE CALL LIGHT WITHIN REACH. PT REPORTS NEEDING NOTHING MORE AT THIS TIME.
--- NOTE | 2025-02-12 11:42 | NUR ---
technology lab teacher here to transport pt via wheelchair to imaging.
--- NOTE | 2025-02-12 12:41 | NUR ---
PT DID NOT SEEM TO REMEMBER THAT SHE HAD A PUREWICK IN - SHE WAS INCONTINENT THEN URINATED 50 ML IN TOILET HAT. PT HAD EAR PLUGS IN HER EARS - BUT WAS CONFUSED BY THEM. SHE REMOVED THE EAR PLUGS. TOOK OUT TRASH AND CLEANED UP ROOM.
--- NOTE | 2025-02-12 13:45 | NUR ---
pt sitting in chair. pt seemed confused - i asked if she would like fresh coffee, as when she wanted it earlier we were out of cream - the pt then said she did not want coffee, just cream - and said "cream" several times. call light within reach.
--- NOTE | 2025-02-12 14:54 | NUR ---
UPDATES FAXED TO [facility].
--- NOTE | 2025-02-12 17:49 | NUR ---
PC to pt's "life partner" to advise him that she is ready to be picked up as she has been discharged. He advised that he will be here in about 20 minutes.
--- NOTE | 2025-02-12 18:08 | NUR ---
THIS SHOWER ROOM ATTENDANT REMOVED PATIENTS IV CATHETER PER MARYJO TRIPLETT. CALL LIGHT WITHIN REACH, NO FURTHER NEEDS.
--- NOTE | 2025-02-12 18:22 | NUR ---
Pt's "life partner" here, reviewed meds and discharge paperwork/instruction/education with him. He verbalized understanding.
== END 2025-02-12 18:30 | disposition home or self-care (01) | DRG 101 ==
LOC: ED 14:05 → MS 19:54
PROVIDERS: Emergency Medicine; ADMIT Student in an Organized Health Care Education/Training Program; ATTEND Student in an Organized Health Care Education/Training Program
DX: G40.909 Epilepsy, unspecified, not intractable, without status epilepticus (principal); S22.41XA Multiple fractures of ribs, right side, initial encounter for closed fracture; S27.301A Unspecified injury of lung, unilateral, initial encounter; Z91.148 Patient's other noncompliance with medication regimen for other reason; R29.6 Repeated falls; F31.9 Bipolar disorder, unspecified; Z98.890 Other specified postprocedural states; Z79.899 Other long term (current) drug therapy; Z88.2 Allergy status to sulfonamides; Z88.8 Allergy status to other drugs, medicaments and biological substances; W18.30XA Fall on same level, unspecified, initial encounter
CPT/HCPCS: 36415; 70450; 70551; 71045; 71250; 80053; 80164; 80307; 82550; 83735; 84484; 85025; 93005; 93010; 94762; 97116; 97162; 97166; 97530; 97535; A9270; G0480; J1650; J3475; J7121

== ENCOUNTER 2025-02-21 11:34 | Inpatient (IN) | payer MEDICARE, OTHER ==
[~2025-02-21] VITALS: Ht 170.2 cm; Wt 83.5 kg
[~2025-02-21 11:34] MED LIST changes: +DIVALPROEX SOD250 M1 PO
--- OUTSIDE RECORDS SUMMARY | 2025-02-21 11:38 | XMS ---
PreManage Notification: DANIEL MELENDREZ Security Position Classifier Events No recent Security Events currently on file CRITERIA MET - [facility] - 2 Visits in 30 Days CARE PROVIDERS There are no care providers on record at this time. Kelvin has no Care Guidelines for this patient. Rob VISIT COUNT ([address] [facility] TOTAL 4 NOTE: Visits indicate total known visits. ED/C VISIT TRACKING (12 MO.) 02/21/2025 11:35 [facility] TYPE: Emergency COMPLAINT: - FALL 02/09/2025 14:09 [facility] TYPE: Emergency COMPLAINT: - ALTERED 02/09/2025 00:17 [facility] TYPE: Emergency COMPLAINT: - STROKE SYPMTOMS DIAGNOSES: - Allergy status to other drugs, medicaments and biological substances - Allergy status to sulfonamides - Epilepsy, unspecified, not intractable, without status epilepticus - Other gore inserter (current) drug therapy - Unspecified nystagmus 06/14/2024 13:25 [facility] TYPE: Emergency COMPLAINT: - URINE PROBLEM DIAGNOSES: - Allergy status to sulfonamides - Frequency of micturition - Other gore inserter (current) drug therapy - Urinary tract infection, site not specified INPATIENT VISIT TRACKING (12 MO.) 02/09/2025 19:[address] [facility] TYPE: Medical Surgical COMPLAINT: - GLF/FTT/WEAKNESS DIAGNOSES: - Allergy status to other drugs, medicaments and biological substances - Allergy status to other drugs, medicaments and biological substances - Allergy status to sulfonamides - Allergy status to sulfonamides - Altered mental status, unspecified - Bipolar disorder, unspecified - Bipolar disorder, unspecified - Epilepsy, unspecified, not intractable, without status epilepticus - Epilepsy, unspecified, not intractable, without status epilepticus - Fall on same level, unspecified, initial encounter - Fall on same level, unspecified, initial encounter - Multiple fractures of ribs, right side, initial encounter for closed fracture - Multiple fractures of ribs, right side, initial encounter for closed fracture - Other gore inserter (current) drug therapy - Other gore inserter (current) drug therapy - Other specified postprocedural states - Other specified postprocedural states - Patient's other noncompliance with medication regimen for other reason - Patient's other noncompliance with medication regimen for other reason - Repeated falls - Repeated falls - Unspecified injury of lung, unilateral, initial encounter - Unspecified injury of lung, unilateral, initial encounter [email or web address]
[2025-02-21] MEDS ORDERED: OXYBUTYNIN CHLOR5 MG PO (11:59)
[2025-02-21] MEDS ORDERED: HALOPERIDOL5 MG PO (11:59)
[2025-02-21 12:51] LABS: BASOPHILS 0.2 % (0.1-1.2); EOSINOPHILS 0 % (0.7-5.8); LYMPHOCYTES 4.3 % (19.3-51.7); MCH 31.4 PG (25.6-32.2); MCHC 33.0 g/dL (32.2-35.5); MCV 95.2 fL (79.4-94.8); MONOCYTES 6.3 % (4.7-12.5); NEUTROPHILS 88.4 % (34.0-71.1); RBC 4.14 M/uL (3.93-5.22)
[2025-02-21 13:12] LABS: ALCOHOL, MEDICAL <3 ng/dL (<3); ALT (SGPT) 88 U/L (14-59); AST (SGOT) 258 U/L (15-37); GLOMERULAR FILTRATION RATE,EST 58 mL/min (>60); PROTEIN, TOTAL 7.0 g/dL (6.4-8.2); UREA NITROGEN 38 mg/dL (7-18)
[2025-02-21 13:17] LABS: BLOOD/HGB, URINE MODERATE (Negative); KETONE, URINE >=80 (Negative); LEUK ESTERASE, URINE MODERATE (negative); NITRITE, URINE NEGATIVE (negative)
[2025-02-21 13:25] LABS: BACTERIA, URINE 1+ /hpf (negative); CASTS, URINE NONE SEEN \\lpf; CRYSTALS, URINE NONE SEEN (0-1+); REFLEX CULTURE, URINE Yes (No)
[2025-02-21 13:31] LABS: AMPHETAMINES, URINE NEGATIVE (NEGATIVE); BARBITURATES, URINE NEGATIVE (NEGATIVE); BENZODIAZEPINE, URINE NEGATIVE (NEGATIVE); CANNABINOID, URINE NEGATIVE (NEGATIVE); COCAINE, URINE NEGATIVE (NEGATIVE); ECSTASY, URINE NEGATIVE (NEGATIVE); FENTANYL, URINE NEGATIVE (NEGATIVE); METHADONE, URINE NEGATIVE (NEGATIVE); OPIATES, URINE NEGATIVE (NEGATIVE); OXYCODONE, URINE NEGATIVE (NEGATIVE); PHENCYCLIDINE, URINE NEGATIVE (NEGATIVE)
[2025-02-21] MEDS ORDERED: SODIUM CHLORIDE 0.9% 2,000 ML IV PRN (13:45)
[2025-02-21] MEDS ORDERED: ACETAMINOPHEN 325 MG TAB PO PRN (19:00)
[2025-02-21] MEDS ORDERED: LACTATED RINGER'S 1,000 ML IV SCH (19:00)
[2025-02-21] MEDS ORDERED: POLYETHYLENE GLYCOL 3350 1 PACKET PO ONE (19:15)
[2025-02-21 19:55] VITALS: BP 152/69
--- NOTE | 2025-02-21 20:50 | NUR ---
Patient arrived to the medical floor. Patient is alert and oriented x3, no acute distress. Patient reports chronic back pain, she is declining pain medication. Vital signs are stable, afebrile. Patient reports she is hungry, sandwich box provided. Swallow is intact, pt able to feed herself without difficulty. No notable stroke deficits. Speech is clear and arppropriate. Pt voided in bedpan upon arrival, marlo care done, dry brief placed. Pure wick placed. Seizure pads and bed alarm in place. Patient denies needs, water and call light within reach. Patient close to nurses station.
[2025-02-21] MEDS ORDERED: MELATONIN 3 MG TAB PO PRN (21:00)
--- NOTE | 2025-02-21 23:03 | NUR ---
PT RESTING IN BED WITH EYES CLOSED. RESPIRATIONS EVEN. CALL LIGHT IN REACH. BED ALARM IN PLACE.
[2025-02-22] VITALS (9 sets, daily range): BP systolic 118–131; BP diastolic 62–80
--- NOTE | 2025-02-22 01:35 | NUR ---
PT RESTING WITH EYES CLOSED. AWAKENS EASILY. VS OBTAINED, WNL. ASSISTED TO REPOSITION. NEURO CHECK UNCHANGED. PT DENIES NEEDS. CALL LIGHT IN REACH. SEIZURE PLACE IN PLACE. BED ALARM FOR SAFETY.
--- NOTE | 2025-02-22 03:11 | NUR ---
PT AWAKE IN BED. PT INCONTINENT OF URINE AROUND PUREWICK. PUREWICK AND ATTENDS CHANGED AFTER FILOMENA CARE. 2PA TO REPOSITION IN BED. NO FURTHER NEEDS. CALL LIGHT IN REACH.
--- NOTE | 2025-02-22 04:02 | NUR ---
awake, tele showed an increased HR of 125. pt stated "I moved because my back was hurting, no, no CP".
[2025-02-22 05:21] LABS: BASOPHILS 0.3 % (0.1-1.2); EOSINOPHILS 0.4 % (0.7-5.8); LYMPHOCYTES 15.7 % (19.3-51.7); MCH 31.3 PG (25.6-32.2); MCHC 32.9 g/dL (32.2-35.5); MCV 94.9 fL (79.4-94.8); MONOCYTES 9.0 % (4.7-12.5); NEUTROPHILS 74.1 % (34.0-71.1); RBC 3.55 M/uL (3.93-5.22)
--- NOTE | 2025-02-22 05:38 | NUR ---
LAB IN FOR MORNING DRAW. VS AND I&O OBTAINED. MRI QUESTIONNAIRE COMPLETE. PT POOR HISTORIAN. ASSISTED TO REPOSITION IN BED. NO FURTHER NEEDS. BED ALARM IN PLACE. CALL LIGHT IN REACH.
[2025-02-22 05:50] LABS: ALT (SGPT) 74.0 U/L (14-59); AST (SGOT) 167.0 U/L (15-37); GLOMERULAR FILTRATION RATE,EST 77.0 mL/min (>60); PROTEIN, TOTAL 5.3 g/dL (6.4-8.2); UREA NITROGEN 22.0 mg/dL (7-18)
--- NOTE | 2025-02-22 07:24 | NUR ---
PT AWAKE AT TIME OF SHIFT REPORT. ASSISTED TO THE BED SULLIVAN SHE IS ABLE TO MOVE STOOL. FILOMENA CARE DONE AND NEW PURWIK PLACED. PT DENIES OTHER NEEDS
[2025-02-22] MEDS ORDERED: POTASSIUM CHLORIDE 40 MEQ,LIDOCAINE HCL 1% 40 MG in DEXTROSE 5% 250 ML IV ONE (07:45)
[2025-02-22] MEDS ORDERED: ASCORBIC ACID500 M2 PO (08:22)
[2025-02-22] MEDS ORDERED: MULTI VITAMIN1 EACH PO (08:22)
[2025-02-22] MEDS ORDERED: HAIR, SKIN A66.7 MCG PO (08:22)
[2025-02-22] MEDS ORDERED: FISH OIL 1,0001 EAC8 PO (08:22)
[2025-02-22] MEDS ORDERED: DEPAKOTE250 MG PO (08:22)
[2025-02-22] MEDS ORDERED: COD LIVER OIL1 EAC2 PO (08:22)
--- NOTE | 2025-02-22 08:27 | NUR ---
PT DOWN TO IMAGING
[2025-02-22] MEDS ORDERED: DIVALPROEX SODIUM 250 MG TABLET.DR PO SCH (09:00)
--- NOTE | 2025-02-22 09:22 | NUR ---
DR AGOSTO IN TO SEE PT P/T IS PRESENT CARE COORDINATED
[2025-02-22] MEDS ORDERED: ATORVASTATIN 40 MG TAB PO SCH (09:44)
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
--- NOTE | 2025-02-22 10:01 | NUR ---
UR CLINICAL REVIEW: 2 MN FOR [facility]-PER MICROBIOLOGY LAB ANALYST MEETS INPT FOR CVA WITH NEED FOR PT/OT, MONITORING AND FURTHER IMAGING. MEDICARE INPT 02/21/25 @ 3981 ORDER MATCHES REG DISCHARGE PLAN PENDING FURTHER PT/OT EVAL AND CASE MANAGEMENT EVAL
[2025-02-22 10:08] LABS: CHOLESTEROL/HDL RATIO 2.1; LDL CHOLESTEROL 63.0 mg/dL (< 129); NON-HDL CHOLESTEROL 75.0; VLDL CHOLESTEROL 11.0
--- NOTE | 2025-02-22 10:09 | NUR ---
PATIENT SITTING UP IN CHAIR WATCHING TV. VITALS AND I&O'S DONE AND CHARTED. CALL LIGHT IN REACH. CHAIR ALARM ON. NO FURTHER NEEDS AT THIS TIME.
[2025-02-22] MEDS ORDERED: LIDOCAINE HCL 4% 1 EACH PATCH TD SCH (10:20)
--- NOTE | 2025-02-22 10:29 | NUR ---
PT DID WELL WITH P/T AMBULATED IN THE ROOM USING A WALKER, SHE IS IN THE CHAIR NOW WATCHING TV. WATER AND CALL LIGHT OTHER NEEDED ITEMS IN REACH. PT DENIES NEEDS
--- NOTE | 2025-02-22 11:31 | NUR ---
PT RESTING IN BED AFTER HAVING ECHO CARDIOGRAM. AGREES SHE WILL GET UP FOR LUNCH DECLINES TO GET UP NOW.
--- NOTE | 2025-02-22 11:33 | NUR ---
HEACK PACK PLACED ON LOWER BACK PER PATIENT REQUEST. PATIENT DENIES FURTHER NEEDS AT THIS TIME. CALL LIGHT AND BELONGINGS IN REACH.
[2025-02-22] MEDS ORDERED: PHARMACY RENAL DOSE ADJUSTMENT 1 DOSE MISC PO SCH (12:00)
--- NOTE | 2025-02-22 12:33 | NUR ---
PT SIG OTHER IN TO SEE HER DC STRETCHING MACHINE TENDER FRAME UPDATED. PT BROTHER CALLS FOR UPDATE PT GIVES VERBAL PERMISSION TO DISCUSS HER CASE, AGAIN DC STRETCHING MACHINE TENDER FRAME UPDATED AND HIS NUMBER PROVIDED TO COORDINATE CARE. PT UP TO THE CHAIR FOR NOON MEAL.
--- NOTE | 2025-02-22 13:41 | NUR ---
PT SITTING UP IN THE CHAIR RESTING EYES CLOSED. FRESH H20 AND NEEDED ITEMS CHAIRSIDE
--- NOTE | 2025-02-22 14:06 | NUR ---
IN TO DO VITALS AND I&O'S. PATIENT HAD LARGE INCONT. VOID. PATIENT UP TO BATHROOM, 1PA FWW. FILOMENA CARE DONE. NEW DEPENDS AND GOWN PROVIDED. PATIENT NOW BACK TO CHAIR. VITALS AND I&O'S DONE AND CHARTED. CALL LIGHT IN REACH. CHAIR ALARM ON. NO FURTHER NEEDS AT THIS TIME.
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
--- NOTE | 2025-02-22 15:14 | NUR ---
PATIENT IN CHAIR AT THIS TIME. BAKERY SUPERVISOR CHARTED HOURLY ROUNDS. CALL LIGHT WITHIN REACH, NO FURTHER NEEDS.
--- NOTE | 2025-02-22 15:17 | NUR ---
PT INCONTINENT OF URINE ASSISTED TO TOILET FILOMENA CARE AND FRESH UNDERGARMENT PROVIDED. PT BACK TO THE RECLINER ENCOURAGED TO CALL IN ADVANCE OF NEED. CALL LIGHT AND NEEDED ITEMS IN REACH
--- NOTE | 2025-02-22 17:23 | NUR ---
MED REC COMPLETE
--- NOTE | 2025-02-22 17:37 | NUR ---
SUGGESTED PT USE THE TOILET BEFORE EVENING MEAL SHE AMBULATES TO THE BATHROOM SBA. ABLE TO VOID WELL MOVE HER BOWELS. PT COMPLAINS OF CONSTIPATION REQUESTS DOCUSATE. BOWEL MEDS ORDERED VIA NIO'S. PT TO THE RECLINER FOR EVENING MEAL
--- NOTE | 2025-02-22 17:54 | NUR ---
PATIENT IN CHAIR AT THIS TIME. COURT STENOGRAPHER CHARTED VITALS AND I&O'S. CALL LIGHT WITHIN REACH, NO FURTHER NEEDS.
--- NOTE | 2025-02-22 18:24 | NUR ---
NEW IVF BAG INFUSING WITHOUT DIFFULTY. PATIENT SITTING IN RECLINER WATCHING TV. NO NEEDS IDENTIFIED AT THIS TIME. CALL LIGHT AND BELONGINGS IN REACH.
--- NOTE | 2025-02-22 19:25 | NUR ---
VERBAL REPORT RECEIVED BY GARRETT SIBLEY. PATIENT IS SITTING UP IN RECLINER AWAKE. CRANBERRY JUICE AND CRACKERS PROVIDED PER PATIENT REQUEST. DENIES ANY FURTHER NEEDS AT THIS TIME. CALL LIGHT IN REACH.
--- NOTE | 2025-02-22 20:10 | NUR ---
PT ASSISTED FROM BRP TO BED WITH USE OF FWW, CGA. HEAT PACK APPLIED TO RIGHT LOWER BACK. PT PROVIDED CRANBERRY JUICE. SIDERAILS UP X3. CALL NAVAS IN REACH, BED ALARM ACTIVATED, BED LOW POSITION AND LOCKED. PERSONAL ITEMS IN REACH. PT INSTRUCTED TO CALL FOR ASSISTANCE, VERBALIZED UNDERSTANDING.
--- NOTE | 2025-02-22 20:41 | NUR ---
PATINT SITTING UP IN BED WATCHING TV AT THIS TIME. WARM BLANKET PROVIDED PER PATIENT REQUEST. PATIET DENIES AY FURTHER NEEDS AT THIS TIME. CALL LIGHT IN REACH.
[2025-02-22] MEDS ORDERED: DIVALPROEX SODIUM 500 MG TABLET.DR PO SCH (21:00)
[2025-02-22] MEDS ORDERED: LIDOCAINE PATCH REMOVAL 1 EA TD SCH (21:00)
[2025-02-22] MEDS ORDERED: SENNOSIDES/DOCUSATE 1 EA TAB PO SCH (21:00)
[2025-02-22] MEDS ORDERED: POLYETHYLENE GLYCOL 3350 1 PACKET PO SCH (21:00)
--- NOTE | 2025-02-22 22:13 | NUR ---
PATIENT CALLED STATING I NEED TO USE THE BATHROOM. IN TO THE ROOM PATIENT STATED I CAN NNOT HOLD I NEED A BED SULLIVAN. VOIDED 400ML YELLOW URINE. PUREWICK PLACE AFTER CLEANED UP. BED ALARM ON FOR SAFETY. CALL LIGHT WITHIN REACH.
--- NOTE | 2025-02-22 23:55 | NUR ---
PATIENT IS AWAKE RESTING IN BED. FRESH BRIEF APPLIED AND FILOMENA CARE PERFORMED BY RIKA BRYANT. BED ALARM ON FOR PATIENT SAFETY, CALL LIGHT IN REACH. PATIENT DENIES NEEDS AT THIS TIME.
[2025-02-23] VITALS (12 sets, daily range): BP systolic 128–148; BP diastolic 57–83
--- NOTE | 2025-02-23 01:57 | NUR ---
ASSESSMENT UNCAHNGED. PATIENT RESTING IN BED EYES CLOSED, BREATHING EVEN AND UNLABORED. PATIENT DENIES NEEDS AT THIS TIME. CALL LIGHT IN REACH. BED ALARM ON FOR PATIENT SAFETY.
--- NOTE | 2025-02-23 04:18 | NUR ---
PATIENT RESTING IN BED EYES CLOSED, BREATHING EVEN AND UNLABORED. CALL LIGHT IN REACH. BED ALARM ON FOR PATIENT SAFETY.
[2025-02-23 05:22] LABS: BASOPHILS 0.5 % (0.1-1.2); EOSINOPHILS 1.6 % (0.7-5.8); LYMPHOCYTES 24.4 % (19.3-51.7); MCH 31.6 PG (25.6-32.2); MCHC 32.7 g/dL (32.2-35.5); MCV 96.9 fL (79.4-94.8); MONOCYTES 10.5 % (4.7-12.5); NEUTROPHILS 62.3 % (34.0-71.1); RBC 3.54 M/uL (3.93-5.22)
--- NOTE | 2025-02-23 05:38 | NUR ---
PATIENT LEFT AC IV DC'D DUE TO LEAKING AROUND SITE, IV TIP INTACT. FRESH BRIEF AND PUREWICK APPLIED DUE TO URINE LEAKING AROUND PUREWICK. PATIENT GIVEN FRESH WATER, DENIES FURTHER NEEDS AT THIS TIME. BED ALARM ON FOR PATIENT SAFETY. CALL LIGHT IN REACH.
[2025-02-23 05:49] LABS: ALT (SGPT) 75.0 U/L (14-59); AST (SGOT) 115.0 U/L (15-37); GLOMERULAR FILTRATION RATE,EST 72.0 mL/min (>60); PROTEIN, TOTAL 5.2 g/dL (6.4-8.2); UREA NITROGEN 13.0 mg/dL (7-18)
--- NOTE | 2025-02-23 07:10 | NUR ---
RECEIVED REPORT FROM MARYJO LU AND MARYJO LUU. PATIENT RESTING IN BED WITH EYES CLOSED, RESPIRATIONG EVEN AND UNLABORED. IVF INFUSING WITHOUT DIFFICULTY. NO NEEDS IDENTIFIED AT THIS TIME. CALL LIGHT AND BELONGINGS IN REACH.
[2025-02-23] MEDS ORDERED: MAGNESIUM SULFATE 2 GM/50 ML BAG IV ONE (08:00)
--- NOTE | 2025-02-23 08:18 | NUR ---
PATIENT CALLED TO GET CLEANED UP, THIS DICTATING TRANSCRIBING MACHINE SERVICER IN TO ASSIST. PATIENT HAD INCONT. LARGE SOFT BM. FILOMENA CARE DONE. NEW DEPENDS IN PLACE. PATIENNT UP TO BATHROOM, SBA FWW. ORAL CARE AND AM CARE DONE AT SINK. LINENS CHANGED. PATIENT NOW IN CHAIR FOR BREAKFAST. NEW PUREWICK PLACED. CHAIR ALARM ON. CALL LIGHT IN REACH. NO FURTHER NEEDS AT THIS TIME.
--- NOTE | 2025-02-23 09:05 | NUR ---
HOURLY ROUNDING PATIENT COMPLETED AM CARE AND ATE BREAKFEAST IN RECLINER CHAIR. NO REQUEST AT THIS TIME CALL LIGHT HAS BEENPLACED WITHIN REACH
--- NOTE | 2025-02-23 09:08 | NUR ---
HEPARIN DRIP TURNED OFF AT THIS TIME PER MD ORDER. OXYGEN NOT TO EXCEED 92%, ON RA AT THIS TIME. NO LONGER ON O2 AT THIS TIME.
--- NOTE | 2025-02-23 09:30 | NUR ---
Spoke with Rosina. She would like to go to a SNF on discharge. She would like to remain in [place]. I will send her chart to [facility] at her request.
--- NOTE | 2025-02-23 09:52 | NUR ---
PATIENT SALINE LOCKED AND GOING TO CT AT THIS TIME.
--- NOTE | 2025-02-23 10:40 | NUR ---
PATIENT BACK FROM CT SITTING UP IN RECLINER, IVF INFUSING WITHOUT DIFFICULTY. PATIENT DENIES NEEDS AT THIS TIME. CALL LIGHT AND BELONGINGS WITHIN REACH.
--- NOTE | 2025-02-23 11:01 | NUR ---
ROUNDED ON PATIENT. PATIENT SITTING UP IN RECLINER FEET ELEVATED VISITING WITH S/O. NO NEEDS IDENTIFIED AT THIS TIME. CALL LIGHT IN REACH.
--- NOTE | 2025-02-23 12:12 | NUR ---
IN PATIENT ROOM TO ASSIST WITH INCONTINENCE EPISODE. ARNOLDO MCCAULEYIEVED FILOMENA CARE, ANGELICA DICKEY, ANGELICA GAMEZ, ANGELICA SHOOK. PATIENT BACK IN RECLINER WITH CHAIR ALARM SET. EDUCATIED PATIENT ROTARY DRIER OPERATOR LIGHT USE WHEN SHE FEELS THE URGE TO GO TO THE RESTROOM. PATIENT VERBALIZED UNDERSTANDING. CALL LIGHT IN REACH.
[2025-02-23] MEDS ORDERED: CLOPIDOGREL BISULFATE 75 MG TAB PO SCH (13:15)
[2025-02-23] MEDS ORDERED: ASPIRIN 81 MG CHEW PO SCH (13:15)
--- NOTE | 2025-02-23 14:00 | NUR ---
PHYSICAL THERAPY IN WITH PATINET, SALINE LOCKED IV FOR THERAPY. NO NEEDS AT THIS TIME.
--- NOTE | 2025-02-23 15:55 | NUR ---
HOURLY ROUNDING PATIENT SITTING INRECLINER CHAIR ASKED FOR HOT PAC, HOT PACK WAS GIVEN. PATIENT APPEARS TO BE CONFUSED AT TIMES, NURSE HAS BEEN NOTIFIED CALL LIGHT HAS BEEN PLACED WITHIN REACH
--- NOTE | 2025-02-23 17:00 | NUR ---
ROUNDED ON PATIENT, SITTING UP IN RECLINER AWAKE AND ALERT WATCHING TV. IVF INFUSING WITHOUT DIFFICULTY. NO NEEDS IDENTIFIED AT THIS TIME. CALL LIGHT IN REACH.
--- NOTE | 2025-02-23 19:25 | NUR ---
VERBAL REPORT RECEIVED FROM ENRRIQUE SIBLEY. PATIENT IS UP IN RECLINER AWAKE AT THIS TIME, DENIES ANY NEEDS. CALL LIGHT IN REACH.
--- NOTE | 2025-02-23 21:36 | NUR ---
PATIENT ASSISTED TO BATHROOM VIA SBA AND FWW. ASSISTED WITH FILOMENA CARE, FRESH BRIEF APPLIED. PATIENT TOLERATED AMBULATION WELL. PATIENT COMPLAINS OF 6/10 BACK PAIN, PRN PAIN MEDICATION GIVEN (SEE EMAR). PATIENT REPOSITIONED IN BED, HEAT THERAPY PROVIDED FOR PATIENT COMFORT. PATIENT DENIES ANY FRUTHER NEEDS AT THIS TIME CALL LIGHT IN REACH, BED ALARM ON FOR SAFETY.
--- NOTE | 2025-02-24 00:26 | NUR ---
IN ROOM WITH PATIENT AT THIS TIME. IV INSERTION PERFORMED BY THIS RN IN THE LEFT FOREARM 22G, PATIENT TOLERATED WELL. IV DC'D IN RIGHT FOREARM DUE TO INFILITRATION, WARM BLANKET APPLIED AND ARM ELEVATED. PATIENT ASSISTED TO BATHROOM 1PA FWW, PATIENT TOLERATED AMBULATING WELL. PATIENT REPOSITIONED IN BED FOR PATIENT COMFORT. BED ALARM ON FOR PATIENT SAFETY. PATIENT DENIES FURTHER NEEDS AT THIS TIME. CALL LIGHT IN REACH.
--- NOTE | 2025-02-24 02:07 | NUR ---
PATIENT RESTING IN BED EYES CLOSED BREATHING EVEN AND UNLABORED. CALL LIGHT IN REACH NO NEEDS AT THIS TIME. BED ALARM ON FOR PATIENT SAFETY. IVF INFUSING AT THIS TIME.
--- NOTE | 2025-02-24 04:16 | NUR ---
PATIENT RESTING IN BED EYES CLOSED, BREATHING EVEN AND UNLABORED. BED ALARM ON FOR PATIENT SAFEY. CALL LIGHT IN REACH.
[2025-02-24 04:48] VITALS: BP 126/49
[2025-02-24 04:58] VITALS: BP 126/49
--- NOTE | 2025-02-24 04:58 | NUR ---
PATIENT UP IN BED AWAKE AT THIS TIME. PATIENT REPOSITIONED IN BED FOR PATIENT COMFORT, K PAD PLACED BACK ON BACK PER PATIENT REQUEST. CALL LIGHT IN REACH. BED ALARM ON FOR PATIENT SAFETY.
[2025-02-24 05:32] LABS: BASOPHILS 0.6 % (0.1-1.2); EOSINOPHILS 3.2 % (0.7-5.8); LYMPHOCYTES 22.7 % (19.3-51.7); MCH 31.3 PG (25.6-32.2); MCHC 32.5 g/dL (32.2-35.5); MCV 96.4 fL (79.4-94.8); MONOCYTES 8.4 % (4.7-12.5); NEUTROPHILS 64.7 % (34.0-71.1); RBC 3.64 M/uL (3.93-5.22)
[2025-02-24 05:47] LABS: ALT (SGPT) 64.0 U/L (14-59); AST (SGOT) 78.0 U/L (15-37); GLOMERULAR FILTRATION RATE,EST 75.0 mL/min (>60); PROTEIN, TOTAL 5.1 g/dL (6.4-8.2); UREA NITROGEN 11.0 mg/dL (7-18)
--- NOTE | 2025-02-24 07:12 | NUR ---
CALL LIGHT ANSWERED. PT UP TO BR WITH FWW AND SBA TO VOID AND HAVE MEDIUM SOFT BM. STAFF ASSIST WITH FILOMENA CARE. BACK TO RECLINER. GAIT STEADY. K-PAD TO RIGHT LOWER BACK PER REQUEST. NO FURTHER NEEDS. CHAIR ALARM FOR SAFETY. CALL LIGHT IN REACH.
--- NOTE | 2025-02-24 07:56 | NUR ---
REPORT RECEIVED FROM MARYJO LUU. pt RESTING IN CHAIR WITH EYES CLOSED. BREATHING UNLABORED. IVF INFSUING ORDERED. CALL LIGHT IN REACH.
[2025-02-24 08:56] VITALS: BP 140/65
--- NOTE | 2025-02-24 09:16 | NUR ---
pt UP IN CHAIR AWAKE. SBA WITH FWW TO RESTROOM, INCONTINENT OF STOOL AND URINE, ADDITIONAL VOID AND SOFT STOOL IN TOILET. ASSISTED TO CLEAN, pt WASHES HANDS AND BACK TO CHAIR. COMPLAINS OF 6/10 BACK PAIN, PRN TYLENOL ADMINISTERED. LIDODERM PATCH APPLIED. ASSESSMENT COMPLETE. NEURO CHECK WNL. IV SITE FLUSHED WNL, IV ANTIBIOTIC INFUSING WNL. CALL LIGHT IN REACH. CHAIR ALARM ON. WARM BLANKET PROVIDED.
[2025-02-24 09:18] VITALS: BP 140/65
--- NOTE | 2025-02-24 09:30 | NUR ---
[facility] ABLE TO ACCEPT PATIENT TODAY FOR SNF. DR. AGOSTO NOTIFIED. WHEELCHAIR VAN SCHEDULED FOR 1300 TODAY. SPOKE WITH ELAINE AT [facility] TO DISCUSSS CASE WELL. SHE PLANS TO VISIT WITH PATIENT THIS AFTEROON, STATES SHE WILL CALL PRIOR TO SEEING PATIENT SO SHE CAN FOLLOW UP AT [facility] IF SHE HAS BEEN DISCHARGED.
--- NOTE | 2025-02-24 09:45 | NUR ---
THIS RN INTO ROOM, IV PUMP ALARMING. IV ABX DISCONNECTED. IV FLUIDS RESTARTED. PT REQUESTING THE REFRESH EYE DROPS AT BEDSIDE TO BILATERAL EYES. PT REQUESTING A BED BATH/SHOWER CAP IN PLACE BEFORE COMES TO VISIT AT 10:30. THIS RN LEFT RIKA WEBBER KNOW WHO WILL ACCOMPLISH SHOWER THIS MORNING.
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
--- NOTE | 2025-02-24 10:15 | NUR ---
CALLED AND LEFT MESSAGE FOR ABBI PER PATIENT REQUEST.
--- NOTE | 2025-02-24 10:18 | NUR ---
SECURE EMAIL SENT TO SISTER, GILBERT, PER PATIENT VERVBAL APPROVAL
[2025-02-24] MEDS ORDERED: SENNOSIDES/DOCUSATE 1 EA TAB PO PRN (10:30)
[2025-02-24] MEDS ORDERED: POLYETHYLENE GLYCOL 3350 1 PACKET PO PRN (10:30)
[2025-02-24] MEDS ORDERED: CLOPIDOGREL75 MG PO (10:32)
[2025-02-24] MEDS ORDERED: LIPITOR40 MG PO (10:32)
[2025-02-24] MEDS ORDERED: ASPIRIN81 MG PO (10:32)
[2025-02-24] MEDS ORDERED: HALOPERIDOL5 MG PO (10:33)
[2025-02-24] MEDS ORDERED: OXYBUTYNIN CHLOR5 M1 PO (10:35)
[2025-02-24] MEDS ORDERED: LIDOCAINE1 EACH TD (10:36)
[2025-02-24] MEDS ORDERED: HEALTHYLAX17 GM PO (10:36)
[2025-02-24] MEDS ORDERED: STIMULANT LAXA1 EACH PO (10:36)
[2025-02-24] MEDS ORDERED: CEFPODOXIME PR200 MG PO (10:40)
--- NOTE | 2025-02-24 10:40 | NUR ---
CALL LIGHT ANSWERED. WARM BLANKET PROVIDED. CALL LIGHT IN REACH. NO ADDITIONAL REQUESTES. CHAIR ALARM IN PLACE.
--- NOTE | 2025-02-24 10:44 | NUR ---
BROTHER, ABBI, CALLED BACK WITH QUESTIONS REGARDING DC PLAN. INFORMED HIM DANIEL WILL LEAVE BY WHEELCHAIR VAN TO [facility], PHONE NUMBER PROVIDED TO ABBI. QUESTIONS REGARDING ADVANCED DIRECTIVE ANSWERED. STATES SARGENT FROM [facility] TOLD HIM HE CAN NOT HAVE RECORDS DUE TO PATIENT DENIAL OF HIS ACCESS, INFORMED HIM THAT IS CORRECT. HE CAN NOT HAVE ACCESS TO HER MEDICAL RECORDS AND HIS SISTER, GILBERT, MAY NOT EITHER BECAUSE DANIEL DOES NOT WANT THEM HAVING ACCESS. VERBALIZES UNDERSTANDING. NO FURTHER QUESTIONS.
--- NOTE | 2025-02-24 11:03 | NUR ---
ORDER FAXED TO [facility].
--- NOTE | 2025-02-24 11:22 | NUR ---
pt UP IN CHAIR. NIH COMPLETE, 0. IN ROOM VISITING. CALL LIGHT IN REACH. CHAIR ALARM ON. IVF INFUSING WNL.
[2025-02-24 12:50] VITALS: BP 123/75
--- NOTE | 2025-02-24 13:45 | NUR ---
CALL LIGHT ANSWERED. ASSISTED pt TO CLEAN SELF AFTER BM AND VOID IN BSC. SBA WITH FWW BACK TO CHAIR. CHAIR ALARM ON. WASH CLOTH PROVIDED FOR pt TO WASH FACE. CALL LIGHT IN REACH.
[2025-02-24 14:10] VITALS: BP 134/71
--- NOTE | 2025-02-24 14:26 | NUR ---
VSS. pt OFF FLOOR WITH WC VAN AT 1405, VISUAL DESIGNER ESCORT TO FRONT OF HOSPITAL. PHONE CALL TO [facility], REPORT GIVEN TO MARYJO GOODMAN.
== END 2025-02-24 14:16 | disposition home or self-care (01) | DRG 65 ==
LOC: ED 11:34 → MS 18:59
PROVIDERS: Emergency Medicine; ADMIT Student in an Organized Health Care Education/Training Program; ATTEND Student in an Organized Health Care Education/Training Program
DX: I63.89 Other cerebral infarction (principal); N39.0 Urinary tract infection, site not specified; G40.909 Epilepsy, unspecified, not intractable, without status epilepticus; F31.9 Bipolar disorder, unspecified; R29.6 Repeated falls; R29.700 NIHSS score 0; R79.89 Other specified abnormal findings of blood chemistry; K59.00 Constipation, unspecified; M47.892 Other spondylosis, cervical region; T79.6XXA Traumatic ischemia of muscle, initial encounter; Z98.890 Other specified postprocedural states; Z88.2 Allergy status to sulfonamides; Z88.8 Allergy status to other drugs, medicaments and biological substances; Z79.899 Other long term (current) drug therapy; W19.XXXA Unspecified fall, initial encounter
CPT/HCPCS: 36415; 70450; 70496; 70498; 70551; 71045; 71250; 74176; 80053; 80061; 80307; 81001; 82550; 83036; 83605; 83735; 85025; 85060; 87088; 93306; 97110; 97162; 97166; 97530; 97535; A9270; G0480; J0696; J3475; J3480; J3490; J7030; J7060; J7121; Q9967